=== PATIENT | female | born 1980 | race African-American/Black ===

== ENCOUNTER 2021-02-15 09:20 | Emergency (ER) | payer OTHER ==
[~2021-02-15] VITALS: Ht 162.6 cm; Wt 74.4 kg
[2021-02-15 09:29] VITALS: BP 133/72
--- NOTE | 2021-02-15 09:34 | NUR ---
Patient ambulated to bed 9. RN evaluating the patient at bedside.
--- NOTE | 2021-02-15 09:40 | NUR ---
40 YEAR OLD FEMALE COMPLAINS OF CHEST PAIN X 5 DAYS. PT STATES PAIN RADIATES TO RIGHT SHOULDER, HAS BEEN PROGRESSIVELY GETTING WORSE EACH DAY. PT ALSO COMPLAINS OF SOB, LUNGS CLEAR BL, DIFFICULTY TAKING BIG BREATHE, RR20, SPO2 99%. AOX4, BREATHING EVEN AND UNLABORED, SKIN WARM AND DRY. BED IN LOWEST POSITION, LOCKED, BED RAIL UPX1. PMH - HTN, HLD ALLERGIES - NKA
[2021-02-15] MEDS ORDERED: KETOROLAC 30 MG/ML VIAL IVP ONE (10:05)
--- NOTE | 2021-02-15 10:13 | NUR ---
US tech at bedside for exam.
--- NOTE | 2021-02-15 10:20 | NUR ---
RFID SPECIALIST AT BEDSIDE
[2021-02-15 10:30] LABS: HEMATOCRIT 33.2 % (36-48); HEMOGLOBIN 11.1 g/dL (12.0-16.0); MEAN CORPUSCULAR HEMOGLOBIN 29 pg (27-31); MEAN CORPUSCULAR HGB CONC 34 g/dL (33-37); MEAN CORPUSCULAR VOLUME 86.8 fL (80-94); RED BLOOD CELL COUNT(AUTO) 3.82 MIL/uL (4.20-5.40)
[2021-02-15 10:31] LABS: BASOPHILS % (AUTO) 0.4 % (0.0-2.0); EOSINOPHILS % (AUTO) 0.7 % (0.0-4.0); LYMPHOCYTES # (AUTO) 1.2 K/uL (2.5-16.5); LYMPHOCYTES % (AUTO) 17.5 % (20.5-51.1); MONOCYTES # (AUTO) 0.5 K/uL (0.8-1.0); NEUTROPHILS # (AUTO) 5.2 K/uL (1.8-7.7); NEUTROPHILS % (AUTO) 74.4 % (42.2-75.2); PLATELET COUNT (AUTO) 328 K/uL (140-450); RED CELL DISTRIBUTION WIDTH 14.9 % (11.6-13.7)
--- NOTE | 2021-02-15 10:42 | NUR ---
PT CONTINUES TO SAY SHE IS UNABLE TO URINATE, ERMD MADE AWARE
[2021-02-15 10:43] LABS: ALBUMIN 3.1 g/dL (3.4-5.0); ANION GAP 11.9 (8-16); CARBON DIOXIDE 26.4 mmol/L (21-32); CREATININE 0.7 mg/dL (0.6-1.3); POTASSIUM 3.3 mmol/L (3.5-5.1); TOTAL BILIRUBIN 0.5 mg/dL (0.0-1.0)
[2021-02-15] MEDS ORDERED: ACET-8386 PO (11:48)
[2021-02-15] MEDS ORDERED: CEPH-588 PO (11:48)
[2021-02-15] MEDS ORDERED: cefTRIAXone 1,000 MG VIAL ONE (11:57)
[2021-02-15] MEDS ORDERED: ACET-5629 PO (12:44)
[2021-02-15] MEDS ORDERED: CEPH500C16 PO (12:44)
[2021-02-15 12:51] VITALS: BP 133/72
[2021-02-15 12:52] LABS: BILIRUBIN,URINE NEGATIVE (NEGATIVE); BLOOD, URINE 1+ (NEGATIVE); COLOR,URINE YELLOW (YELLOW); LEUKOCYTE ESTERASE ,URINE 1+ (NEGATIVE); NITRITE, URINE NEGATIVE (NEGATIVE); UGLUCOSE NEGATIVE (NEGATIVE)
--- NOTE | 2021-02-15 12:53 | NUR ---
Patient discharged with v/s stable. Written and verbal after care instructions ABOUT MEDICATIONS AND PYELONEPHRITIS given and explained. Patient alert, oriented and verbalized understanding of instructions. Ambulatory with steady gait. All questions addressed prior to discharge. ID band removed. Patient advised to follow up with PMD. Rx of OXYCODONE HCL/ACETAMINOPHEN (PEROCET 5-325 MG) AND CEPHALEXIN given. Patient educated on indication of medication including possible reaction and side effects. Opportunity to ask questions provided and answered.
[2021-02-15 13:22] LABS: WBC,URINE 0-5 /HPF (0-5)
[2021-02-15 13:23] LABS: APPEARANCE,URINE SLIGHTLY HAZY (CLEAR)
== END 2021-02-15 12:50 | disposition home or self-care (01) ==
LOC: MED 09:20
DX: N12 Tubulo-interstitial nephritis, not specified as acute or chronic (principal); R07.89 Other chest pain; D64.9 Anemia, unspecified; I10 Essential (primary) hypertension; E78.5 Hyperlipidemia, unspecified; Z98.890 Other specified postprocedural states; Z79.899 Other long term (current) drug therapy
CPT/HCPCS: 36415; 71045; 76705; 80053; 81001; 81025; 83690; 85025; 87086; 93005; 96361; 96374; 99285; J0696; J1885

== ENCOUNTER 2021-02-18 11:12 | Inpatient (IN) | payer OTHER ==
[~2021-02-18] VITALS: Ht 167.6 cm; Wt 75.3 kg
[~2021-02-18 11:12] MED LIST: ACET-5629 PO; ACET-8386 PO; CEPH-588 PO; CEPH500C16 PO
[2021-02-18 11:20] VITALS: BP 109/71
--- NOTE | 2021-02-18 11:24 | NUR ---
Ambulated to bed 12
--- NOTE | 2021-02-18 11:25 | NUR ---
C/O RIGHT CHEST PAIN SINCE LAST WEEK ON MONDAY, PATIENT DESCRIBES PAIN CONSTANT AND PRESSURE, 6/10 PAIN. DENIES ANY SOB BUT C/O DIFFICULTY BREATHING. VSS SHOW 97% AND CLEAR LUNG THROUGHOUT. PATIENT REPORTS BEING HERE ON MONDAY FOR UTI. AAOX4. VSS. PMH: HTN, HIGH CHOLESTEROL NKDA
--- NOTE | 2021-02-18 11:40 | NUR ---
xray at bedside
--- NOTE | 2021-02-18 11:42 | NUR ---
blood collected and gave blood to laborer concrete paving
[2021-02-18 11:51] LABS: BASOPHILS # (AUTO) 0.1 K/uL (0.00-0.22); BASOPHILS % (AUTO) 0.9 % (0.0-2.0); EOSINOPHILS # (AUTO) 0.1 K/uL (0-0.4); EOSINOPHILS % (AUTO) 0.9 % (0.0-4.0); HEMATOCRIT 35.3 % (36-48); HEMOGLOBIN 11.8 g/dL (12.0-16.0); LYMPHOCYTES # (AUTO) 1.4 K/uL (2.5-16.5); LYMPHOCYTES % (AUTO) 22.5 % (20.5-51.1); MEAN CORPUSCULAR HEMOGLOBIN 29 pg (27-31); MEAN CORPUSCULAR HGB CONC 33 g/dL (33-37); MEAN CORPUSCULAR VOLUME 86.2 fL (80-94); MONOCYTES # (AUTO) 0.4 K/uL (0.8-1.0); NEUTROPHILS # (AUTO) 4.4 K/uL (1.8-7.7); NEUTROPHILS % (AUTO) 69.7 % (42.2-75.2); PLATELET COUNT (AUTO) 406 K/uL (140-450); RED BLOOD CELL COUNT(AUTO) 4.09 MIL/uL (4.20-5.40); RED CELL DISTRIBUTION WIDTH 14.7 % (11.6-13.7); WHITE BLOOD COUNT (AUTO) 6.2 K/uL (4.8-10.8)
[2021-02-18 12:05] LABS: ALBUMIN 3.2 g/dL (3.4-5.0); ANION GAP 21.4 (8-16); CARBON DIOXIDE 23.2 mmol/L (21-32); CREATININE 0.8 mg/dL (0.6-1.3); POTASSIUM 3.6 mmol/L (3.5-5.1); TOTAL BILIRUBIN 0.4 mg/dL (0.0-1.0)
--- NOTE | 2021-02-18 12:18 | NUR ---
PATIENT TAKEN TO CT VIA MAKENNA
--- NOTE | 2021-02-18 12:30 | NUR ---
patient back from CT
--- NOTE | 2021-02-18 12:31 | NUR ---
patient placed back on the monitor. safety measures in place. will continue to monitor patient
--- NOTE | 2021-02-18 13:49 | NUR ---
GEORGIA Randall at bedside for re-evaluation of patient and for results
--- NOTE | 2021-02-18 14:09 | NUR ---
PATIENT ABULATED TO THE BATHROOM
[2021-02-18] MEDS ORDERED: LIDOCAINE/EPI 1% 1:100000 20 ML VIAL INJ ONE (14:30)
--- NOTE | 2021-02-18 14:45 | NUR ---
GEORGIA Randall at bedside for Thoracentesis procedure
--- NOTE | 2021-02-18 14:47 | NUR ---
Bill gay in [facility] - 02/18/21 at 1449 by BJ LEYLA Henderson at bedside for examination of patient
[2021-02-18] MEDS ORDERED: cefTRIAXone 2,000 MG in DEXTROSE 5% 100 ML IV ONE (15:05)
[2021-02-18] MEDS ORDERED: AZITHROMYCIN 500 MG in DEXTROSE 5% 250 ML IV ONE (15:05)
--- NOTE | 2021-02-18 15:16 | NUR ---
xray at bedside
[2021-02-18] MEDS ORDERED: cefTRIAXone 2,000 MG VIAL ONE (15:21)
[2021-02-18] MEDS ORDERED: ATOR10TA PO (15:51)
[2021-02-18] MEDS ORDERED: AMLO10TA PO (15:51)
[2021-02-18] MEDS ORDERED: POTASSIUM CHLORIDE 10 MEQ TABER PO PRN (16:30)
[2021-02-18] MEDS ORDERED: HYDROcodone/APAP 7.5/325 MG 1 TAB PO PRN (16:30)
[2021-02-18] MEDS ORDERED: guaiFENesin DM 200/20 MG-10 ML 10 ML UDC PO PRN (16:30)
[2021-02-18] MEDS ORDERED: ONDANSETRON 4 MG/2 ML VIAL IM/IVP PRN (16:30)
[2021-02-18] MEDS ORDERED: DOCUSATE SODIUM 100 MG GELCAP PO PRN (16:30)
[2021-02-18] MEDS ORDERED: ALBUTEROL SULFATE/IPRATROPIU 3 ML SOL IH PRN (16:35)
[2021-02-18] MEDS ORDERED: AZITHROMYCIN 500 MG INJ VIAL IV ONE (16:42)
--- NOTE | 2021-02-18 16:42 | NUR ---
Patient appears to be resting comfortably in bed. Vital Signs within normal limits. Respirations even and unlabored. Safety measures are in place. Will continue to monitor
[2021-02-18 16:43] LABS: BILIRUBIN,URINE NEGATIVE (NEGATIVE); BLOOD, URINE 1+ (NEGATIVE); COLOR,URINE YELLOW (YELLOW); LEUKOCYTE ESTERASE ,URINE 1+ (NEGATIVE); NITRITE, URINE NEGATIVE (NEGATIVE); PH,URINE 6.5 (5.0-9.0); UGLUCOSE NEGATIVE (NEGATIVE)
[2021-02-18 16:48] LABS: APPEARANCE,URINE HAZY (CLEAR)
--- NOTE | 2021-02-18 16:55 | NUR ---
Called for report to KAYLEIGH Henry- no answer at this time. Will call back again.
--- NOTE | 2021-02-18 17:00 | NUR ---
Patient will be admitted to care of MD Banerjee. Admited to Telemetry. Will go to room 120B. Belongings list completed. Report to KAYLEIGH Henry.
[2021-02-18 17:03] LABS: BARBITURATE, URINE NEGATIVE ng/ml (NEG <=200); BENZODIAZEPINE, URINE NEGATIVE ng/mL (NEG <=200); CANNABINOID, URINE NEGATIVE ng/mL (NEG <=50); COCAINE, URINE NEGATIVE ng/mL (NEG <=300); OPIATE, URINE NEGATIVE ng/mL (NEG <=2000); PHENCYCLIDINE SCREEN,URINE NEGATIVE ng/mL (NEG <=25)
[2021-02-18 17:08] LABS: RBC,URINE 0-5 /HPF (0-5)
--- NOTE | 2021-02-18 17:55 | NUR ---
RECEIVED PT FROM FIELD APPRAISERKAYLEIGH BECKER. PT IS ALERT AND ORIENTED X 4, PRESENTING WITH C/O CHEST DISCOMFORT 6/10 THAT HAS COME AND GONE. PT IS ON ROOM AIR, SATURATING 100%, RESPIRATIONS EVEN AND UNLABORED. LUNG SOUNDS ARE CLEAR BUT DIMINISHED IN THE BASES. PT IS CURRENTLY SR ON THE MONITOR. PT IS ABLE TO AMBULATE TO RESTROOM. HOB IS 30 DEG, WITH BED IN LOW LOCKED POSITION, CALL LIGHT WITHIN REACH. VSS. BP 108/65, TEMPERATURE 98.3, HR 85, R 16.
[2021-02-18 18:00] VITALS: BP 108/64
--- NOTE | 2021-02-18 18:00 | NUR ---
MRSA SWAB AND URINE WALKED TO LAB
[2021-02-18] MEDS: NACL 0.9% 1,000 ML IV SCH (18:02)
[2021-02-18 18:11] LABS: APPEARANCE,SPUN,BODY FLUID CLEAR (CLEAR); APPEARANCE,UNSPUN,BODY FLUID HAZY (CLEAR); COLOR,BODY FLUID YELLOW (LT YELLOW); GLUCOSE,BODY FLUID 95 mg/dL
--- NOTE | 2021-02-18 18:20 | NUR ---
IV FLUIDS STARTED, AZITHROMYCIN STILL RUNNING AT THIS TIME
[2021-02-18 18:24] LABS: CHOL/HDL RATIO 2.5 (1-4.5); FREE T4 (FREE THYROXINE) 0.98 ng/dL (0.76-1.46); PHOSPHORUS 2.1 mg/dL (2.5-4.9); THYROID STIMULATING HORMONE 1.27 uIU/mL (0.34-3.74)
[2021-02-18 19:00] VITALS: BP 125/81
--- NOTE | 2021-02-18 19:00 | NUR ---
RECEIVED REPORT FROM DAY SHIFT RN EARLIER REGARDING PT FOR CONTINUITY OF CARE. ADMITTED PATIENT FROM ER RECEIVED PATIENT SITTING ON BED, A/A/OX4. NO SIGNS AND SYMPTOMS OF DISTRESS NOTED. PT DENIES ANY CHEST PAIN, SOB, PALPITATIONS, AND DIZZINESS. NO COMPLAIN AT THIS TIME. DISCUSS POC WITH THE PT AND VERBALIZED UNDERSTANDING. FALL PRECAUTION IMPLEMENTED AND INSTRUCTED TO CALL FOR ASSISTANCE AT ALL TIMES. CALL LIGHT WITHIN REACH. WILL CONTINUE POC AND MONITORING.
[2021-02-18] MEDS: ALBUTEROL SULFATE/IPRATROPIU 3 ML SOL IH SCH (19:12)
--- NOTE | 2021-02-18 19:16 | NUR ---
REPORT GIVEN TO ELECTRICIAN'S HELPER RN FOR CONTINUITY OF CARE. ELECTRICIAN'S HELPER WILL BE RESPONSIBLE FOR ADMISSION
[2021-02-18 21:28] LABS: SPECIMENTYPE,BODY FLUID THORACENTESIS
[2021-02-18 21:29] LABS: TOTAL VOLUME,BODY FLUID 12 mL
[2021-02-18] MEDS: ZOLPIDEM 5 MG TAB PO PRN (22:05)
--- NOTE | 2021-02-18 22:05 | NUR ---
PATIENT REQUESTED FOR SLEEPING PILL, PRN AMBIEN GIVEN ORDERED.
[2021-02-18 22:10] LABS: WBC, BODY FLUID 576 /cu. mm.
[2021-02-18 22:11] LABS: POLYNUCLEAR, BODY FLUID 6 %; RBC, BODY FLUID 40000 /cu. mm.
[2021-02-19] VITALS: BP 106/63
--- NOTE | 2021-02-19 | NUR ---
PATIENT'S VITAL SIGNS STABLE, AFEBRILE, SAT 97% ON RA. NO COMPLAIN AT THIS TIME. SR ON OIL BURNER, HR 93. WILL CONTINUE TO OBSERVE.
--- NOTE | 2021-02-19 01:40 | NUR ---
OBTAINED SPECIMEN FOR RSV AND PCR AND TOOK SPECIMENS TO THE LAB AND HANDED IT TO URGENT CARE
[2021-02-19] MEDS: ALBUTEROL SULFATE/IPRATROPIU 3 ML SOL IH SCH ×3 (02:01→19:50)
--- NOTE | 2021-02-19 04:00 | NUR ---
PATIENT'S VITAL SIGNS STABLE, AFEBRILE, SAT 99% ON RA. NO COMPLAIN AT THIS TIME. SR ON TOWEL WEAVER, HR 95. WILL CONTINUE TO OBSERVE.
[2021-02-19 05:35] VITALS: BP 110/71
[2021-02-19 06:10] LABS: BASOPHILS % (AUTO) 0.5 % (0.0-2.0); EOSINOPHILS % (AUTO) 0.5 % (0.0-4.0); HEMATOCRIT 30.9 % (36-48); HEMOGLOBIN 10.5 g/dL (12.0-16.0); LYMPHOCYTES # (AUTO) 2.1 K/uL (2.5-16.5); LYMPHOCYTES % (AUTO) 32.5 % (20.5-51.1); MEAN CORPUSCULAR HEMOGLOBIN 29 pg (27-31); MEAN CORPUSCULAR HGB CONC 34 g/dL (33-37); MEAN CORPUSCULAR VOLUME 86.3 fL (80-94); MONOCYTES # (AUTO) 0.5 K/uL (0.8-1.0); MONOCYTES % (AUTO) 7.7 % (1.7-9.3); NEUTROPHILS # (AUTO) 3.8 K/uL (1.8-7.7); NEUTROPHILS % (AUTO) 58.8 % (42.2-75.2); PLATELET COUNT (AUTO) 388 K/uL (140-450); RED BLOOD CELL COUNT(AUTO) 3.58 MIL/uL (4.20-5.40); RED CELL DISTRIBUTION WIDTH 14.7 % (11.6-13.7); WHITE BLOOD COUNT (AUTO) 6.4 K/uL (4.8-10.8)
[2021-02-19 06:13] LABS: ANION GAP 17.7 (8-16); CARBON DIOXIDE 21.8 mmol/L (21-32); CREATININE 0.6 mg/dL (0.6-1.3); POTASSIUM 3.5 mmol/L (3.5-5.1)
--- NOTE | 2021-02-19 06:19 | NUR ---
PATIENT STABLE. NO S/S OF DISTRESS NOTED. ALL NEEDS ATTENDED. NO COMPLAIN AT THIS TIME. WILL ENDORSE THE PATIENT TO THE ONCOMING RN FOR CONTINUITY OF CARE.
--- NOTE | 2021-02-19 07:30 | NUR ---
RECEIVED BEDSIDE REPORT FROM PIPELINE CONTROLLER NURSE FOR CONTINUITY OF CARE. PT IS AWAKE AND ALERT. PT IS ON RA. PT IS TELEMONITOR ON SR. PT IS AMBULATORY AND CONTINENT. SKIN IS INTACT, WARM AND DRY. IV IS ON LEFT AC WITH A 22 GAUGE. PT DENIES CHEST PAIN AT THIS TIME. PT IS STABLE WITH STANDARD PRECAUTIONS. WILL CONTINUE WITH PLAN OF CARE.
--- NOTE | 2021-02-19 07:40 | NUR ---
PATIENT STABLE. ENDORSED PATIENT TO DAY RN KRISTEL FOR CONTINUITY OF CARE. SIGNING OFF.
[2021-02-19 08:00] VITALS: BP 99/62
[2021-02-19 08:08] LABS: T4 (THYROXINE) 10.8 ug/dL (4.5-12.0)
[2021-02-19] MEDS ORDERED: cefTRIAXone 1,000 MG VIAL ONE (08:20)
[2021-02-19] MEDS: PANTOPRAZOLE 40 MG TABEC PO SCH (08:34)
[2021-02-19] MEDS: SODIUM PHOS / POTASSIUM PHOS 1 PKT PDR PO SCH ×3 (08:35→17:14)
[2021-02-19] MEDS: NACL 0.9% 1,000 ML IV SCH (08:36)
--- NOTE | 2021-02-19 09:30 | NUR ---
PT IS SITTING UP AND EATING BREAKFAST. DR. REYES IS AT BEDSIDE TALKING TO PT. PT IS STABLE. INFLUENZA A AND B SWAB WAS DOES ON PT AND WAS SENT TO LAB. WILL CONTINUE TO MONITOR.
--- NOTE | 2021-02-19 10:10 | NUR ---
PATIENT HAS BEEN SCREENED AND CATEGORIZED MODERATE NUTRITION RISK. PATIENT WILL BE SEEN WITHIN 3-5 DAYS OF ADMISSION. 02/20/21 02/22/[address]
[2021-02-19] MEDS: FERROUS SULFATE 325 MG TABEC PO SCH ×2 (11:22→17:13)
--- NOTE | 2021-02-19 11:35 | NUR ---
WENT IN AND CLEANED PT L ARM FROM IV SITE. THE IV IS PATENT AND FLUSHING WELL. PATIENT IS STABLE AND SITTING IN BED ON HER TELEPHONE.
[2021-02-19 12:00] VITALS: BP 99/68
--- NOTE | 2021-02-19 13:00 | NUR ---
PT IS SITTING UP ON BED TALKING ON HER PHONE AND EATING LUNCH. PT IS STABLE. WILL CONTINUE TO MONITOR HER.
--- NOTE | 2021-02-19 15:05 | NUR ---
PT IS SITTING ON BED WATCHING TELEVISION. PT IS STABLE. WILL CONTINUE TO MONITOR.
[2021-02-19 16:00] VITALS: BP 110/66
--- NOTE | 2021-02-19 16:24 | NUR ---
DC PLANNING FOLLOW UP APPOINTMENT SCHEDULE WITH PCP DR JEANCARLOS EASON ADDRESS [address] [facility] [address] [place], [place] TEL # [phone]. APPOINTMENT REMINDER GIVEN TO THE NURSE.
[2021-02-19] MEDS: AZITHROMYCIN 500 MG in DEXTROSE 5% 250 ML IV SCH (17:14)
--- NOTE | 2021-02-19 17:40 | NUR ---
PATIENT IS LAYING IN BED. CHEST IS RISING AND FALLING SYMMETRICAL. PT IS STABLE AND WILL CONTINUE TO MONITOR.
--- NOTE | 2021-02-19 19:10 | NUR ---
ENDORSED PT TO DAY SHIFT NURSE FOR CONTINUITY OF CARE. PT IS STABLE AT THIS TIME. PLAN OF CARE DISCUSSED.
--- NOTE | 2021-02-19 19:15 | NUR ---
RECEIVED REPORT FROM RN DAYSHIFT NURSE PIERO AT BEDSIDE FOR CONTINUITY OF CARE, PT IN STABLE CONDITION. SHE IS AOX4 SITTING UP IN BED WITH LEFT AC 20 GUAGE INTACT AND RUNNING ZITHROMAX IV ABT. PT DENIES ANY PAIN ,OR SOB, SHE IS ON ROOM AIR AND HAS FAMILY MEMBER VISITING AT BEDSIDE. ALL UNIVERSAL PRECAUTIONS IN PLACE.
[2021-02-19 20:00] VITALS: BP 111/65
--- NOTE | 2021-02-19 20:30 | NUR ---
PT IS SITTING UP IN BED ON ROOM AIR NO S/S OF PAIN OR DISTRESS NOTED. PT DENIES PAIN , PT DID COMPLAIN THAT IV SITE WAS PAINFUL, ZITHROMAX RATE SLOWED DOWN, DUE TO DISCOMFORT, NO S/S OF INFILTRATION NOTED. IV ABT ALMOST FINISHED. V/S FOLLOWS: T 98 P 81 R 18 B/P 111/65 02 94% ON ROOM AIR. ALL UNIVERSAL FALLS PRECAUTIONS IN PLACE.
--- NOTE | 2021-02-19 21:35 | NUR ---
IV ABT COMPLETED NO REACTION NOTED. PT C/O OF PAIN AT IV SITE, AREA IS SLIGHTLY SWOLLEN ABOVE IV SITE, NO LEAKING NOTED. D/C OLD IV SITE. NEW IV SITE PROVIDED TO LEFT HAND 22 GUAGE IV FLUIDS OF NORMAL SALINE IN PROGRESS. PT ALSO GIVEN INCENTIVE SPIROMETER AND TEACHING PROVIDED AT BEDSIDE. ALL REQUESTS ATTENDED AND ALL UNIVERSAL PRECAUTIONS IN PLACE.
[2021-02-19] MEDS: ZOLPIDEM 5 MG TAB PO PRN (22:46)
--- NOTE | 2021-02-19 22:50 | NUR ---
PT REQUESTED FOR SLEEPING PILL, SHE WAS GIVEN PO/PRN AMBIEN. NO S/S OF PAIN OR DISTRESS NOTED. IV SITE INTACT AND FLUIDS OF NORMAL SALINE CONTINUES AT 60MLS/HR ORDERED. ALL UNIVERSAL FALLS PRECAUTIONS IN PLACE.
[2021-02-20] VITALS (7 sets, daily range): BP systolic 113–129; BP diastolic 67–88
--- NOTE | 2021-02-20 00:14 | NUR ---
NEB TREATMENT GIVEN AT BEDSIDE REQUESTED. V/S FOLLOWS: T 97.9 P 82 R 18 B/P 113/67 02 95% ON ROOM AIR. ALL FALLS PRECAUTIONS IN PLACE.
--- NOTE | 2021-02-20 04:45 | NUR ---
PT IN BED NO S/S OF PAIN OR DISTRESS NOTED,. RR EVEN AND UNLABORED ON ROOM AIR. V/S STABLE IV RUNNING N/S ORDERED. ALL UNIVERSAL FALLS PRECAUTIONS IN PLACE.
[2021-02-20] MEDS: NACL 0.9% 1,000 ML IV SCH ×2 (06:26→18:26)
[2021-02-20 06:59] LABS: BASOPHILS % (AUTO) 0.7 % (0.0-2.0); EOSINOPHILS # (AUTO) 0.2 K/uL (0-0.4); EOSINOPHILS % (AUTO) 3.1 % (0.0-4.0); HEMATOCRIT 30.9 % (36-48); HEMOGLOBIN 10.4 g/dL (12.0-16.0); LYMPHOCYTES # (AUTO) 2.2 K/uL (2.5-16.5); LYMPHOCYTES % (AUTO) 39.4 % (20.5-51.1); MEAN CORPUSCULAR HEMOGLOBIN 29 pg (27-31); MEAN CORPUSCULAR HGB CONC 34 g/dL (33-37); MEAN CORPUSCULAR VOLUME 86.4 fL (80-94); MONOCYTES # (AUTO) 0.5 K/uL (0.8-1.0); MONOCYTES % (AUTO) 9.3 % (1.7-9.3); NEUTROPHILS # (AUTO) 2.6 K/uL (1.8-7.7); NEUTROPHILS % (AUTO) 47.5 % (42.2-75.2); PLATELET COUNT (AUTO) 398 K/uL (140-450); RED BLOOD CELL COUNT(AUTO) 3.58 MIL/uL (4.20-5.40); WHITE BLOOD COUNT (AUTO) 5.5 K/uL (4.8-10.8)
[2021-02-20] MEDS: ALBUTEROL SULFATE/IPRATROPIU 3 ML SOL IH SCH ×3 (07:20→19:00)
--- NOTE | 2021-02-20 07:25 | NUR ---
PATIENT RECEIVED FROM EXTERNAL GRINDER TOOL RN. PT RESTING IN BED. NO S/SX OF DISTRESS. CALL LIGHT WITHIN REACH NO SAFETY MEASURES ARE IN PLACE.
[2021-02-20 08:07] LABS: FOLIC ACID 14.2 ng/mL (>3.0)
[2021-02-20 08:35] LABS: ANION GAP 10.6 (8-16); CREATININE 0.6 mg/dL (0.6-1.3); POTASSIUM 3.6 mmol/L (3.5-5.1)
[2021-02-20] MEDS: FERROUS SULFATE 325 MG TABEC PO SCH ×2 (08:49→16:14)
[2021-02-20] MEDS: SODIUM PHOS / POTASSIUM PHOS 1 PKT PDR PO SCH ×2 (08:49→13:24)
[2021-02-20] MEDS: PANTOPRAZOLE 40 MG TABEC PO SCH (08:49)
--- NOTE | 2021-02-20 09:00 | NUR ---
MEDICATIONS GIVEN PER MD ORDER. PATIENT EDUCATED AND VERBALIZED UNDERSTANDING . NO S/SX OF DISTRESS. CALL LIGHT WITHIN REACH NO SAFETY MEASURES ARE IN PLACE.
[2021-02-20] MEDS: ACETAMINOPHEN 325 MG TAB PO PRN ×2 (09:01→19:56)
--- NOTE | 2021-02-20 11:25 | NUR ---
PT RESTING IN BED. PT REQUEST ASSISTANCE WITH BED BATH . ALL SUPPLIES BROUGHT . PT ABLE TO PERFORM ADLS INDEPENDENTLY
--- NOTE | 2021-02-20 13:00 | NUR ---
MEDICATIONS GIVEN PER MD ORDER. PATIENT EDUCATED AND VERBALIZED UNDERSTANDING . NO S/SX OF DISTRESS. CALL LIGHT WITHIN REACH NO SAFETY MEASURES ARE IN PLACE.
--- NOTE | 2021-02-20 15:00 | NUR ---
PT AMBULATED TO RESTROOM TOLERATED WELL. NO S/SX OF DISTRESS AT THIS TIME
--- NOTE | 2021-02-20 16:00 | NUR ---
MEDICATIONS GIVEN PER MD ORDER. PATIENT EDUCATED AND VERBALIZED UNDERSTANDING . NO S/SX OF DISTRESS. CALL LIGHT WITHIN REACH NO SAFETY MEASURES ARE IN PLACE.
[2021-02-20] MEDS: AZITHROMYCIN 500 MG in DEXTROSE 5% 250 ML IV SCH (16:14)
--- NOTE | 2021-02-20 17:15 | NUR ---
PT ASSISTED WITH LINEN CHANGE. PT SITTING ON CHAIR TALKING ON PHONE
--- NOTE | 2021-02-20 18:00 | NUR ---
PT DENIES SPUTUM , PHLEGM OR COUGH , WAS UNABLE TO COLLECT SPUTUM CULTURE. WILL ENDORSE
--- NOTE | 2021-02-20 19:20 | NUR ---
PT ENDORSED TO GROCERY SHOPPER NURSE FOR CONTINUITY OF CARE
--- NOTE | 2021-02-20 19:25 | NUR ---
RECEIVED PT IN STABLE CONDITION FROM AM NURSE. AWAKE,ALERT AND ORIENTED X4. TELE PT. WITH C/O SLIGHT PAIN ON IV SITE. CHECKED IV STILL INFUSING WELL. WILL MONITOR. NO SOB NOTED. PLAN OF CARE DISCUSSED AND VERBALIZED UNDERSTANDING. FREQ ROUNDS. NEEDED. BED ON LOW POSITION. SIDE RAISL UP X2. CALL LIGHT WIHTIN REACH. WILL CONTINUE TO MONITOR.
--- NOTE | 2021-02-20 21:05 | NUR ---
PT REFUSED Tx. PT DENIES SOB W/ NO DISTRESS NOTED WILL CONTINUE TO MONITOR
--- NOTE | 2021-02-20 23:00 | NUR ---
PT WANTS TO SLEEP EARLY. VITAL SIGNS TAKEN AND RECORDER.
--- NOTE | 2021-02-20 23:10 | NUR ---
IV ACCESS ON THE LT HAND PAINFUL. NO MORE BLOOD RETURN. DISCONTINUED AND STARTED A NEW IV SITE ON LT FA G#22. CLEAR AND PATENT.
--- NOTE | 2021-02-21 01:00 | NUR ---
MADE ROUNDS. SLEEPING WELL. NO S/S OF ANY DISTRESS NOTED.
--- NOTE | 2021-02-21 04:00 | NUR ---
VITAL SIGNS TAKEN. STABLE. NO C/O ANY DISCOMFORT NOR PAIN NOTE.
[2021-02-21 05:00] VITALS: BP 139/62
[2021-02-21] MEDS: NACL 0.9% 1,000 ML IV SCH ×2 (06:01→12:07)
[2021-02-21 06:42] LABS: BASOPHILS % (AUTO) 0.8 % (0.0-2.0); EOSINOPHILS # (AUTO) 0.2 K/uL (0-0.4); EOSINOPHILS % (AUTO) 4.3 % (0.0-4.0); HEMATOCRIT 32.3 % (36-48); HEMOGLOBIN 10.9 g/dL (12.0-16.0); LYMPHOCYTES # (AUTO) 2.2 K/uL (2.5-16.5); MEAN CORPUSCULAR HEMOGLOBIN 29 pg (27-31); MEAN CORPUSCULAR HGB CONC 34 g/dL (33-37); MEAN CORPUSCULAR VOLUME 85.9 fL (80-94); MONOCYTES # (AUTO) 0.3 K/uL (0.8-1.0); MONOCYTES % (AUTO) 6.1 % (1.7-9.3); NEUTROPHILS # (AUTO) 2.5 K/uL (1.8-7.7); NEUTROPHILS % (AUTO) 47.8 % (42.2-75.2); PLATELET COUNT (AUTO) 469 K/uL (140-450); RED BLOOD CELL COUNT(AUTO) 3.76 MIL/uL (4.20-5.40); WHITE BLOOD COUNT (AUTO) 5.3 K/uL (4.8-10.8)
--- NOTE | 2021-02-21 06:55 | NUR ---
SPUTUM NOT YET COLLECTED. PT SAID NO COUGH AT ALL.
[2021-02-21 06:58] LABS: ANION GAP 11.4 (8-16); CARBON DIOXIDE 24.9 mmol/L (21-32); CREATININE 0.6 mg/dL (0.6-1.3); POTASSIUM 3.3 mmol/L (3.5-5.1)
[2021-02-21] MEDS: ALBUTEROL SULFATE/IPRATROPIU 3 ML SOL IH SCH ×3 (07:00→19:50)
--- NOTE | 2021-02-21 07:15 | NUR ---
ENDORSED PT IN STABLE CONDITION TO AM NURSE.
--- NOTE | 2021-02-21 07:18 | NUR ---
PT RESTING IN BED. EYES CLOSED EASY TO AROUSE. NO S/SX OF DISTRESS AT THIS TIME. ALL SAFETY MEASURES ARE IN PLACE
--- NOTE | 2021-02-21 07:25 | NUR ---
Patient refused morning breathing treatment. Indicated that she wanted to sleep more and did not need it at this time. Patient is aware that she has an order for a PRN tx if she so requests. No resp distress noted at this time.
--- NOTE | 2021-02-21 07:54 | NUR ---
PT ASSISTED WITH BEING PULLE DUP ON BED. THEN PT REQUESTED TO SIT UP. PT DANGLING ON BED. NO S/S OF DISTRESS AT THIS TME
[2021-02-21 08:00] VITALS: BP 125/70
--- NOTE | 2021-02-21 08:09 | NUR ---
PT REQUEST ASSISTANCE WITH HE BEDBATH.
[2021-02-21] MEDS: ACETAMINOPHEN 325 MG TAB PO PRN (09:22)
[2021-02-21] MEDS: FERROUS SULFATE 325 MG TABEC PO SCH ×2 (09:22→16:48)
[2021-02-21] MEDS: PANTOPRAZOLE 40 MG TABEC PO SCH (09:22)
--- NOTE | 2021-02-21 09:55 | NUR ---
MEDICATIONS GIVEN PER ,D ORDER. PT EDUCATED VERBALIZED UNDERSTANDING. NO S/SX OF DISTRESS AT THIS TIME. PT TOLERATED WELL.
--- NOTE | 2021-02-21 10:17 | NUR ---
PT EDUCATED ON SPUTUM COLLECTION. PT DENIES COUGH , PHLEGM OR ANY ORAL SECRETIONS.
--- NOTE | 2021-02-21 11:10 | NUR ---
PT ROUNDED ON PT DENIES PAIN AT THIS TIME
[2021-02-21 12:00] VITALS: BP 119/79
--- NOTE | 2021-02-21 12:28 | NUR ---
PT ASSISTED WITH MEAL TRAY SET UP
--- NOTE | 2021-02-21 12:39 | NUR ---
Asked patient if she wanted an afternoon breathing tx. Pt stated she was not interested in having anymore breathing treatments at this time. Pt is aware she has an order for PRN txs if needed.
--- NOTE | 2021-02-21 13:09 | NUR ---
PT USING INCENTIVE SPIROMETER . PT TOLERATED WELL.
--- NOTE | 2021-02-21 15:20 | NUR ---
PT RESTING IN BED. NO S/S OF DISTRESS AT THIS TIME
[2021-02-21 16:00] VITALS: BP 118/81
--- NOTE | 2021-02-21 16:21 | NUR ---
PATIENT AMBULATING AROUND UNIT PT TOLERATING WELL
[2021-02-21] MEDS: AZITHROMYCIN 500 MG in DEXTROSE 5% 250 ML IV SCH (16:43)
--- NOTE | 2021-02-21 16:48 | NUR ---
K 3.3 , PRN MEDICATION GIVEN PER MD ORDERS PT EDUCATED TOLERATED WELL. SCHEDULED MEDICATIONS GIVEN AT THIS TIME
--- NOTE | 2021-02-21 18:14 | NUR ---
PT EDUCATED ON INCENTIVE SPIROMETER. PT TOLERATED WELL. PT CLAIMS SHE HAS NO SPUTUM AT THIS TIME
--- NOTE | 2021-02-21 19:26 | NUR ---
PT ENDORSED TO CORRECTIONAL GUARD RN FOR CONTINUITY OF CARE
--- NOTE | 2021-02-21 19:28 | NUR ---
RECEIVED PT IN STABLE CONDITION FROM AM NURSE. AWAKE,ALERT AND ORINETED X4. AMBULATORY . ON TELE MONITOR -SR. DENIES ANY DISCOMFORT NOR PAIN AT THIS TIME. WITH CONTINUOS IVF INFUSING WELL ON THE LT FA G#22. CLEAR AND PATENT. PLAN OF CARE DISCUSSED AND VERBALIZED UNDERSTANDING. STILL NEED SPUTUM SPECIMEN FOR CULTURE.PT MADE AWARE . FREQ ROUNDS. BED ON LOWEST POSITION. SIDE RAILS UP X2. CALL LIGHT WITHIN REACH. . WILL CONTINUE TO MONITOR.
[2021-02-21 20:00] VITALS: BP 130/84
--- NOTE | 2021-02-21 21:00 | NUR ---
MADE ROUNDS. PT IS AWAKE. NO C/O ANY DISCOMFORT NOTED.
--- NOTE | 2021-02-21 23:00 | NUR ---
PT IS AWAKE. WENT TO BATHROOM. NO C/O ANY PAIN NOTED.
--- NOTE | 2021-02-22 02:00 | NUR ---
MADE ROUNDS. SLEEPING WELL. NO S/S OF ANY DISCOMFORT NOTED.
[2021-02-22 03:26] VITALS: BP 129/88
[2021-02-22] MEDS: NACL 0.9% 1,000 ML IV SCH (03:50)
--- NOTE | 2021-02-22 04:00 | NUR ---
CHECKED ON PT. AWAKE. WENT TO BATHROOM .VOIDED. NO CO ANY DISCOMFORT.
--- NOTE | 2021-02-22 06:00 | NUR ---
CHECKED ON PT. SLEEPING WELL. NO S/S OF ANY DISTRESS NOTED.
[2021-02-22 07:05] LABS: ANION GAP 15.4 (8-16); CARBON DIOXIDE 23.2 mmol/L (21-32); CREATININE 0.7 mg/dL (0.6-1.3); POTASSIUM 3.6 mmol/L (3.5-5.1)
[2021-02-22 07:07] LABS: MAGNESIUM 1.9 mg/dL (1.8-2.4); PHOSPHORUS 2.9 mg/dL (2.5-4.9)
[2021-02-22 07:08] LABS: EOSINOPHILS # (AUTO) 0.2 K/uL (0-0.4); EOSINOPHILS % (AUTO) 4.1 % (0.0-4.0); HEMATOCRIT 32.7 % (36-48); LYMPHOCYTES % (AUTO) 39.3 % (20.5-51.1); MEAN CORPUSCULAR HEMOGLOBIN 29 pg (27-31); MEAN CORPUSCULAR HGB CONC 34 g/dL (33-37); MEAN CORPUSCULAR VOLUME 86.8 fL (80-94); MONOCYTES # (AUTO) 0.4 K/uL (0.8-1.0); NEUTROPHILS # (AUTO) 2.4 K/uL (1.8-7.7); NEUTROPHILS % (AUTO) 47.6 % (42.2-75.2); PLATELET COUNT (AUTO) 465 K/uL (140-450); RED BLOOD CELL COUNT(AUTO) 3.77 MIL/uL (4.20-5.40); RED CELL DISTRIBUTION WIDTH 14.7 % (11.6-13.7)
[2021-02-22] MEDS: ALBUTEROL SULFATE/IPRATROPIU 3 ML SOL IH SCH (07:37)
--- NOTE | 2021-02-22 07:40 | NUR ---
RECEIVED BEDSIDE REPORT FROM SHANK MAKER NURSE FOR CONTINUITY OF CARE. PT IS AWAKE AND ALERT, A&OX4. ON RA WITH BREATHING UNLABORED. SR ON TELE MONITOR. PT IS AMBULATORY INDEPENDENTLY. SKIN IS WARM, DRY, AND INTACT. IV IS IN THE LEFT FOREARM 22 GAUGE SALINE LOCKED. PT REFUSED FLUIDS PER SHANK MAKER NURSE. PT IS STABLE. PLAN OF CARE DISCUSSED.
--- NOTE | 2021-02-22 07:45 | NUR ---
ENDORSED TO AM NURSE IN STABLE CONDITION.
[2021-02-22 08:00] VITALS: BP 139/88
[2021-02-22] MEDS: PANTOPRAZOLE 40 MG TABEC PO SCH (08:44)
[2021-02-22] MEDS: FERROUS SULFATE 325 MG TABEC PO SCH (08:44)
--- NOTE | 2021-02-22 08:55 | NUR ---
PT REFUSED IVPB ANTIBIOTIC AND IVF. EDUCATED PT ON IMPORTANCE OF MEDICATION AND SHE STILL REFUSED. WILL REPORT TO DOCTOR.
--- NOTE | 2021-02-22 09:01 | NUR ---
SPOKE TO DR. TRIVEDI AND INFORMED HIM THAT PT WANTS ANTIBIOTICS PO AND REFUSED TO HAVE FLUIDS. DOCTOR IS AWARE AND WILL CHANGE ORDERS ACCORDINGLY.
--- NOTE | 2021-02-22 09:16 | NUR ---
(02/22/21) RD INITIAL ASSESSMENT COMPLETED PLEASE REFER TO NUTRITION ASSESSMENT UNDER CARE ACTIVITY FOR ESTIMATED NUTRITIONAL NEEDS. RD RECOMMENDATIONS: 1. CONTINUE REGULAR DIET TOLERATED. 2. ENCOURAGED PO INTAKES > 75% AT ALL MEALS TID. IF PO INTAKES DO NOT IMPROVE TO MEET > 75% ESTIMATED NEEDS, RDN TO CONSIDER INCLUDING HEALTH SHAKES WITH MEALS TID. 3. CONSULT RDN PRN. 4. RD WILL F/U 3-5 DAYS; MODERATE RISK. SCOUT MARRERO MS, RDN
[2021-02-22] MEDS ORDERED: LEVO750T51 PO (10:09)
[2021-02-22] MEDS ORDERED: AZITHROMYCIN 250 MG TAB PO SCH (10:41)
--- NOTE | 2021-02-22 10:41 | NUR ---
SPOKE TO PHARMACIST AND ASKED IF THE PHARMACIST COULD VERIFY THE ZITHROMAX ORDER. CLARIFIED THAT PT IS RECEIVING PO INSTEAD OF IV BECAUSE SHE IS REFUSING IV MEDS. ALSO RECEIVING ONE TIME DOSE EARLY BECAUSE PT IS LEAVING AMA. PT SPOKE WITH DR. TRIVEDI AND RISKS/ BENEFITS WERE DISCUSSED REGARDING LEAVING AMA AND PT STILL HAS DECIDED TO LEAVE. DR. TRIVEDI SIGNED AMA PAPER AND PT SIGNED PAPER WELL. IV WAS DC'D AND WRISTBAND WAS REMOVED. PT WILL BE LEAVING SHORTLY.
--- NOTE | 2021-02-22 10:57 | NUR ---
PT HAS LEFT THE UNIT. PT IS STABLE. GAIT IS STEADY. NO DISTRESS NOTED. A&OX4. BREATHING IS UNLABORED.
== END 2021-02-22 11:00 | disposition left against medical advice (07) | DRG 720 ==
LOC: MED 11:12 → MTU 16:37
PROVIDERS: ADMIT Family Medicine; ATTEND Family Medicine
PROC: 0W9B3ZZ Drainage of Left Pleural Cavity, Percutaneous Approach (ICD-10-PCS; principal; 2021-02-18)
PROC: 0W993ZZ Drainage of Right Pleural Cavity, Percutaneous Approach (ICD-10-PCS; 2021-02-18)
DX: A41.9 Sepsis, unspecified organism (principal); J90 Pleural effusion, not elsewhere classified; J18.9 Pneumonia, unspecified organism; E46 Unspecified protein-calorie malnutrition; J91.8 Pleural effusion in other conditions classified elsewhere; D68.59 Other primary thrombophilia; E44.1 Mild protein-calorie malnutrition; E83.39 Other disorders of phosphorus metabolism; I31.3 Pericardial effusion (noninflammatory); N39.0 Urinary tract infection, site not specified; D50.9 Iron deficiency anemia, unspecified; Z20.822 Contact with and (suspected) exposure to COVID-19; I10 Essential (primary) hypertension; E78.00 Pure hypercholesterolemia, unspecified; N12 Tubulo-interstitial nephritis, not specified as acute or chronic; E87.6 Hypokalemia; Z68.26 Body mass index [BMI] 26.0-26.9, adult; M94.0 Chondrocostal junction syndrome [Tietze]
CPT/HCPCS: 36415; 71045; 71275; 80048; 80053; 80305; 81001; 82150; 82607; 82728; 82746; 82945; 83036; 83540; 83690; 83735; 83880; 84100; 84157; 84436; 84439; 84443; 84479; 84484; 85025; 85045; 85379; 85610; 85651; 85730; 86140; 87040; 87070; 87075; 87081; 87086; 87116; 87190; 87205; 87206; 87420; 87804; 89051; 93005; 94640; 96365; 96367; 99285; J0456; J0696; J2001; J7060; Q9967; U0003